=== PATIENT | male | born 1940 | race Caucasian/White ===

== ENCOUNTER 2022-09-11 07:39 | Day surgery (SDC) | payer MEDICARE, OTHER ==
[2022-09-11 08:41] LABS: CALCIUM 8.8 mg/dL (8.5-10.1)
[2022-09-11 08:42] LABS: BLOOD UREA NITROGEN 10.5 mg/dL (7-18)
[2022-09-11 08:44] LABS: BILIRUBIN,DIRECT 0.3 mg/dL (0.0-0.2); CREATININE 0.9 mg/dL (0.55-1.3)
[2022-09-11 08:46] LABS: BILIRUBIN,TOTAL 0.8 mg/dL (0.2-1); TOT PROT 6.6 g/dl (6.4-8.2)
[2022-09-11 08:48] LABS: N-TERMINAL BNP 581.1 pg/ml (5-450)
[2022-09-11 08:51] LABS: BASO % 0.3 % (0-2.0); EOS % 0.5 % (0-4.5); HEMATOCRIT 44.4 % (35.4-49); HEMOGLOBIN 15.8 GM/dL (11.7-16.9); LYMPH % 9.9 % (8-40); MCH 31.4 pg (25.7-33.7); MCHC 35.7 g/dl (32.0-35.9); MEAN CELL VOLUME 88.1 fl (80-96); MEAN PLT VOLUME 7.3 fl (7.5-11.1); MONO % 9.5 % (3.8-10.2); NEUT % 79.8 % (42.8-82.8); PLATELET COUNT 239 10^3/uL (134-434); RBC 5.04 M/mm3 (4.00-5.60); RDW 14.4 % (11.9-15.9); WHITE BLOOD COUNT 9.5 K/mm3 (4.0-10.0)
[2022-09-11 09:16] LABS: EPI CELLS 8 /uL (0-25.1); HYALINE CASTS 1 /uL (0-3.1); PH,URINE 6.5 (5.0-8.0); URINE APPEARANCE CLEAR; URINE BACTERIA 1 /uL (0-1359); URINE BILIRUBIN NEGATIVE (NEGATIVE); URINE COLOR YELLOW; URINE GLUCOSE (UA) TRACE (NEGATIVE); URINE KETONE NEGATIVE (NEGATIVE); URINE LEUK ESTERASE NEGATIVE (NEGATIVE); URINE NITRITE NEGATIVE (NEGATIVE); URINE PROTEIN 2+ (NEGATIVE); URINE RBC 97 /uL (0-23.9); URINE WBC 4 /uL (0-25.8)
[2022-09-11] MEDS ORDERED: SODIUM CHLORIDE 250 ML IV ONE (09:30)
[2022-09-11] MEDS ORDERED: PALONOSETRON HCL 0.25 MG/5 ML VIAL IVPUSH ONE (10:00)
[2022-09-11] MEDS ORDERED: FOSAPREPITANT DIMEGLUMINE 150 MG in SODIUM CHLORIDE 145 ML IVPB ONE (10:00)
[2022-09-11] MEDS ORDERED: PEMBROLIZUMAB 200 MG in SODIUM CHLORIDE 100 ML IV ONE (10:30)
[2022-09-11] MEDS ORDERED: SODIUM CHLORIDE IVPB ONE ×2 (11:00→12:00)
[2022-09-11] MEDS ORDERED: PEMETREXED DISODIUM IVPB ONE (11:00)
[2022-09-11] MEDS ORDERED: POTASSIUM CHLORIDE TABS 20 MEQ TABLET.ER (FP) PO ONE (12:00)
[2022-09-11] MEDS ORDERED: CARBOPLATIN IVPB ONE (12:00)
[2022-09-11 15:37] VITALS: BP 116/84; PULSE 97; RESP 22; TEMP 97.6
== END 2022-09-11 13:30 | disposition home or self-care (01) ==
LOC: JONCCHEMO 07:39
PROVIDERS: ATTEND Internal Medicine Hematology & Oncology
DX: Z51.11 Encounter for antineoplastic chemotherapy (principal); C34.12 Malignant neoplasm of upper lobe, left bronchus or lung
CPT/HCPCS: 36415; 80048; 80076; 81003; 82150; 82533; 82550; 83690; 83880; 84439; 84443; 84484; 85025; 96367; 96375; 96411; 96413; 96417; J1453; J2469; J9271; J9305

== ENCOUNTER 2022-10-02 08:29 | Day surgery (SDC) | payer MEDICARE, OTHER ==
[2022-10-02 09:20] LABS: EPI CELLS 7 /uL (0-25.1); HYALINE CASTS 0 /uL (0-3.1); PH,URINE 6.5 (5.0-8.0); URINE APPEARANCE CLEAR; URINE BACTERIA 142 /uL (0-1359); URINE BILIRUBIN NEGATIVE (NEGATIVE); URINE COLOR YELLOW; URINE GLUCOSE (UA) NEGATIVE (NEGATIVE); URINE KETONE NEGATIVE (NEGATIVE); URINE LEUK ESTERASE TRACE (NEGATIVE); URINE NITRITE NEGATIVE (NEGATIVE); URINE PROTEIN NEGATIVE (NEGATIVE); URINE RBC 18 /uL (0-23.9); URINE UROBILINOGEN 0.2 mg/dL (0.2-1.0); URINE WBC 5 /uL (0-25.8)
[2022-10-02 09:37] LABS: BLOOD UREA NITROGEN 16.2 mg/dL (7-18)
[2022-10-02 09:38] LABS: ALBUMIN 2.9 g/dl (3.4-5.0)
[2022-10-02 09:40] LABS: BILIRUBIN,DIRECT 0.2 mg/dL (0.0-0.2); CREATININE 0.8 mg/dL (0.55-1.3)
[2022-10-02 09:41] LABS: BILIRUBIN,TOTAL 0.4 mg/dL (0.2-1); HEMATOCRIT 37.1 % (35.4-49); HEMOGLOBIN 13.2 GM/dL (11.7-16.9); MCH 31.9 pg (25.7-33.7); MCHC 35.7 g/dl (32.0-35.9); MEAN CELL VOLUME 89.5 fl (80-96); MEAN PLT VOLUME 6.1 fl (7.5-11.1); PLATELET COUNT 379 10^3/uL (134-434); RBC 4.14 M/mm3 (4.00-5.60); RDW 14.6 % (11.9-15.9); TOT PROT 6.4 g/dl (6.4-8.2); WHITE BLOOD COUNT 2.7 K/mm3 (4.0-10.0)
[2022-10-02 09:49] LABS: N-TERMINAL BNP 271.5 pg/ml (5-450)
[2022-10-02] MEDS ORDERED: PALONOSETRON HCL 0.25 MG/5 ML VIAL IVPUSH ONE (10:00)
[2022-10-02] MEDS ORDERED: FOSAPREPITANT DIMEGLUMINE 150 MG in SODIUM CHLORIDE 145 ML IVPB ONE (10:00)
[2022-10-02] MEDS ORDERED: SODIUM CHLORIDE 250 ML IV ONE (10:00)
[2022-10-02 10:30] LABS: ANISOCYTOSIS 0; HELMET CELLS 0; HOWELL-JOLLY BODIES 0; MACROCYTOSIS 0; OVALOCYTE 0; ROULEAU 0; SICKELED CELLS 0; TARGET CELLS 0; TEAR DROP CELLS 0; TOXIC GRANULATION 0
[2022-10-02] MEDS ORDERED: PEMBROLIZUMAB 200 MG in SODIUM CHLORIDE 100 ML IV ONE (10:30)
[2022-10-02] MEDS ORDERED: PEMETREXED DISODIUM IVPB ONE (11:00)
[2022-10-02] MEDS ORDERED: SODIUM CHLORIDE IVPB ONE ×2 (11:00→11:30)
[2022-10-02] MEDS ORDERED: CARBOPLATIN IVPB ONE (11:30)
[2022-10-02 15:45] VITALS: TEMP 97.9
[2022-10-02 15:48] VITALS: BP 122/81; PULSE 95; RESP 20
== END 2022-10-02 11:30 | disposition home or self-care (01) ==
LOC: JONCCHEMO 08:29 → J7W 08:29 → JONCCHEMO 11:30
PROVIDERS: ATTEND Internal Medicine Hematology & Oncology
PROC: 3E0337Z Introduction of Electrolytic and Water Balance Substance into Peripheral Vein, Percutaneous Approach (ICD-10-PCS; principal; 2022-10-02)
DX: C34.12 Malignant neoplasm of upper lobe, left bronchus or lung (principal); Z76.89 Persons encountering health services in other specified circumstances
CPT/HCPCS: 36415; 80048; 80076; 81003; 82150; 82533; 82550; 83690; 83880; 84439; 84443; 84484; 85025; 96360

== ENCOUNTER 2022-10-09 08:11 | Day surgery (SDC) | payer MEDICARE, OTHER ==
[2022-10-09 08:52] LABS: EOS % 0.5 % (0-4.5); HEMATOCRIT 39.6 % (35.4-49); HEMOGLOBIN 14.1 GM/dL (11.7-16.9); LYMPH % 12.5 % (8-40); MCH 31.8 pg (25.7-33.7); MCHC 35.5 g/dl (32.0-35.9); MEAN CELL VOLUME 89.7 fl (80-96); MONO % 15.6 % (3.8-10.2); NEUT % 70.4 % (42.8-82.8); PLATELET COUNT 255 10^3/uL (134-434); RBC 4.42 M/mm3 (4.00-5.60); RDW 15.5 % (11.9-15.9); WHITE BLOOD COUNT 5.4 K/mm3 (4.0-10.0)
[2022-10-09 09:00] LABS: PH,URINE 6.5 (5.0-8.0); URINE APPEARANCE CLEAR; URINE BILIRUBIN NEGATIVE (NEGATIVE); URINE COLOR YELLOW; URINE GLUCOSE (UA) NEGATIVE (NEGATIVE); URINE KETONE NEGATIVE (NEGATIVE); URINE LEUK ESTERASE NEGATIVE (NEGATIVE); URINE NITRITE NEGATIVE (NEGATIVE); URINE PROTEIN NEGATIVE (NEGATIVE); URINE UROBILINOGEN 0.2 mg/dL (0.2-1.0)
[2022-10-09 09:01] LABS: ALBUMIN 3.1 g/dl (3.4-5.0); BLOOD UREA NITROGEN 9.6 mg/dL (7-18); CALCIUM 9.4 mg/dL (8.5-10.1)
[2022-10-09 09:04] LABS: BILIRUBIN,DIRECT 0.3 mg/dL (0.0-0.2)
[2022-10-09 09:05] LABS: TOT PROT 6.8 g/dl (6.4-8.2)
[2022-10-09 09:06] LABS: BILIRUBIN,TOTAL 0.6 mg/dL (0.2-1)
[2022-10-09 09:07] LABS: N-TERMINAL BNP 328.7 pg/ml (5-450)
[2022-10-09] MEDS ORDERED: SODIUM CHLORIDE 250 ML IV ONE (09:30)
[2022-10-09] MEDS ORDERED: FOSAPREPITANT DIMEGLUMINE 150 MG in SODIUM CHLORIDE 145 ML IVPB ONE (10:00)
[2022-10-09] MEDS ORDERED: PALONOSETRON HCL 0.25 MG/5 ML VIAL IVPUSH ONE (10:00)
[2022-10-09] MEDS ORDERED: PEMBROLIZUMAB 200 MG in SODIUM CHLORIDE 100 ML IV ONE (10:30)
[2022-10-09] MEDS ORDERED: SODIUM CHLORIDE IVPB ONE ×2 (11:00→11:30)
[2022-10-09] MEDS ORDERED: PEMETREXED DISODIUM IVPB ONE (11:00)
[2022-10-09] MEDS ORDERED: CARBOPLATIN IVPB ONE (11:30)
[2022-10-09 16:58] VITALS: RESP 19
[2022-10-09 16:59] VITALS: BP 128/91; PULSE 102; TEMP 97.8
== END 2022-10-09 16:10 | disposition home or self-care (01) ==
LOC: JONCCHEMO 08:11
PROVIDERS: ATTEND Internal Medicine Hematology & Oncology
DX: Z51.11 Encounter for antineoplastic chemotherapy (principal); C34.12 Malignant neoplasm of upper lobe, left bronchus or lung
CPT/HCPCS: 36415; 80048; 80076; 81003; 82150; 82533; 82550; 83690; 83880; 84439; 84443; 84484; 85025; 96367; 96375; 96411; 96413; 96417; J1453; J2469; J9271; J9305

== ENCOUNTER 2022-10-09 10:41 | Emergency (ER) | payer MEDICARE, OTHER ==
[2022-10-09 10:53] VITALS: BMI 26.4
[2022-10-09 11:03] VITALS: TEMP 98.2
[2022-10-09 11:56] LABS: URINE APPEARANCE CLEAR; URINE BILIRUBIN NEGATIVE (NEGATIVE); URINE COLOR YELLOW; URINE GLUCOSE (UA) NEGATIVE (NEGATIVE); URINE KETONE TRACE (NEGATIVE); URINE LEUK ESTERASE NEGATIVE (NEGATIVE); URINE NITRITE NEGATIVE (NEGATIVE); URINE PROTEIN NEGATIVE (NEGATIVE); URINE UROBILINOGEN 0.2 mg/dL (0.2-1.0)
[2022-10-09 13:08] VITALS: BP 141/92; PULSE 101; RESP 20
== END 2022-10-09 13:08 | disposition home or self-care (01) ==
LOC: JER 10:41
PROC: 0T9B70Z Drainage of Bladder with Drainage Device, Via Natural or Artificial Opening (ICD-10-PCS; principal; 2022-10-09)
DX: R33.9 Retention of urine, unspecified (principal); R10.30 Lower abdominal pain, unspecified
CPT/HCPCS: 51702; 81003; 87086; 99283-25

== ENCOUNTER 2022-10-10 14:37 | Day surgery (SDC) | payer MEDICARE, OTHER ==
[~2022-10-10 14:37] MED LIST: PEGFILGRASTIM-BMEZ 6 MG/0.6 ML SYRINGE SQ ONE
[2022-10-10 15:38] VITALS: BP 123/81; PULSE 90; RESP 18; TEMP 97.6
== END 2022-10-10 15:10 | disposition home or self-care (01) ==
LOC: JONCCHEMO 14:37
PROVIDERS: ATTEND Internal Medicine Hematology & Oncology
PROC: 3E013GC Introduction of Other Therapeutic Substance into Subcutaneous Tissue, Percutaneous Approach (ICD-10-PCS; principal; 2022-10-10)
DX: C34.90 Malignant neoplasm of unspecified part of unspecified bronchus or lung (principal); Z76.89 Persons encountering health services in other specified circumstances
CPT/HCPCS: 96372; Q5120

== ENCOUNTER 2022-10-30 10:13 | Inpatient (IN) | payer MEDICARE, OTHER ==
[2022-10-30] MEDS ORDERED: LACTATED RINGERS SOLUTION 1000 ML INFUS.BAG IV ONE (11:14)
[2022-10-30 11:49] LABS: VENOUS BASE EXCESS 10.7 mmol/L (-2-2); VENOUS O2 SATURATION 47.4 % (70-80); VENOUS PCO2 52.8 mmHg (38-52); VENOUS PH 7.456 (7.310-7.410)
[2022-10-30 11:52] LABS: HEMATOCRIT 31.7 % (35.4-49); HEMOGLOBIN 11.3 GM/dL (11.7-16.9); MCH 31.3 pg (25.7-33.7); MCHC 35.7 g/dl (32.0-35.9); MEAN CELL VOLUME 87.8 fl (80-96); MEAN PLT VOLUME 6.5 fl (7.5-11.1); PLATELET COUNT 786 10^3/uL (134-434); RDW 16.5 % (11.9-15.9); WHITE BLOOD COUNT 15.3 K/mm3 (4.0-10.0)
[2022-10-30 12:04] LABS: INR 1.72 (0.83-1.09); PROTHROMBIN TIME (PATIENT) 19.9 SEC (9.7-13.0)
[2022-10-30 12:07] LABS: ACTIVATED PTT 36.2 SECONDS (25.2-36.5)
[2022-10-30] MEDS: ALBUTEROL SO4 2.5/IPRATROPIUM 0.5 INH SOL 3 ML VIAL.NEB. NEB SCH (12:13)
[2022-10-30 12:15] LABS: ANISOCYTOSIS 1+; MACROCYTOSIS 0
[2022-10-30] MEDS ORDERED: AZITHROMYCIN IVPB 500 MG in DEXTROSE 5%-WATER - 250 ML IVPB ONE (12:19)
[2022-10-30] MEDS ORDERED: CEFTRIAXONE 1,000 MG in DEXTROSE 5%-WATER - 50 ML IVPB ONE (12:19)
[2022-10-30 12:20] LABS: CHLORIDE 85 mmol/L (98-107); SODIUM 130 mmol/L (136-145)
[2022-10-30 12:22] LABS: BLOOD UREA NITROGEN 12.4 mg/dL (7-18); CALCIUM 9.1 mg/dL (8.5-10.1); CO2 34 mmol/L (21-32); GLUCOSE,RANDOM 124 mg/dL (74-106)
[2022-10-30 12:23] LABS: ALBUMIN 2.8 g/dl (3.4-5.0)
[2022-10-30 12:25] LABS: SGPT/ALT 29 U/L (13-61)
[2022-10-30 12:26] LABS: CREATININE 1.1 mg/dL (0.55-1.3); SGOT/AST 36 U/L (15-37)
[2022-10-30 12:27] LABS: BILIRUBIN,TOTAL 0.6 mg/dL (0.2-1); TOT PROT 6.3 g/dl (6.4-8.2)
[2022-10-30 12:28] LABS: ALK PHOS 117 U/L (45-117)
[2022-10-30] MEDS ORDERED: AZITHROMYCIN IVPB 500 MG/250 ML BAG IVPB ONE (12:29)
[2022-10-30] MEDS ORDERED: CEFTRIAXONE 1 GM/50 ML BAG ONE (12:29)
[2022-10-30 12:37] LABS: ANION GAP 12 MMOL/L (8-16); POTASSIUM 2.5 mmol/L (3.5-5.1)
[2022-10-30 12:55] LABS: LACTIC ACID 2.2 mmol/L (0.4-2.0)
[2022-10-30] MEDS ORDERED: POTASSIUM CHLORIDE ORAL LIQUID 20 MEQ/15 ML PO ONE (15:21)
[2022-10-30 15:27] LABS: EPI CELLS 19 /uL (0-25.1); HYALINE CASTS 1 /uL (0-3.1); PH,URINE 5.5 (5.0-8.0); URINE APPEARANCE TURBID; URINE BACTERIA 1256 /uL (0-1359); URINE BILIRUBIN NEGATIVE (NEGATIVE); URINE COLOR YELLOW; URINE GLUCOSE (UA) NEGATIVE (NEGATIVE); URINE KETONE NEGATIVE (NEGATIVE); URINE LEUK ESTERASE 3+ (NEGATIVE); URINE NITRITE NEGATIVE (NEGATIVE); URINE PROTEIN 1+ (NEGATIVE); URINE RBC 275 /uL (0-23.9); URINE UROBILINOGEN 0.2 mg/dL (0.2-1.0); URINE WBC 20837 /uL (0-25.8)
[2022-10-30] MEDS ORDERED: ALBUTEROL SO4 2.5/IPRATROPIUM 0.5 INH SOL 3 ML VIAL.NEB. NEB PRN (15:39)
[2022-10-30] MEDS ORDERED: POTASSIUM CHLORIDE TABS 20 MEQ TABLET.ER (FP) PO ONE (15:45)
[2022-10-30] MEDS ORDERED: KCL 10 MEQ IVPB 10 MEQ/100 ML INFUS.BAG IVPB ONE (15:46)
[2022-10-30] MEDS ORDERED: ACETAMINOPHEN INJECTION 100 ML IVPB ONE (15:49)
[2022-10-30] MEDS ORDERED: LACTATED RINGERS SOLUTION 1,000 ML/1,000 ML INFUS.BAG IV SCH ×2 (16:00)
[2022-10-30] MEDS: KCL 10 MEQ IVPB 10 MEQ/100 ML INFUS.BAG IVPB SCH (16:37)
[2022-10-30] MEDS ORDERED: ALBUTEROL SO4 2.5/IPRATROPIUM 0.5 INH SOL 3 ML VIAL.NEB. NEB ONE (17:16)
[2022-10-30 20:06] LABS: MAGNESIUM 1.5 mg/dL (1.8-2.4)
[2022-10-30] MEDS ORDERED: traZODone HCL 100 MG TABLET (FP) PO SCH (22:00)
[2022-10-30] MEDS ORDERED: traZODone HCL 50 MG TABLET (FP) PO SCH (22:03)
[2022-10-30] MEDS: DOXYCYCLINE INJECTION 100 MG in DEXTROSE 5%-WATER 100 ML IVPB SCH (22:36)
[2022-10-30] MEDS: APIXABAN 2.5 MG TABLET PO SCH (22:37)
[2022-10-30] MEDS: traZODone HCL 50 MG TABLET (FP) PO SCH (22:37)
[2022-10-30] MEDS: BUDESONIDE/FORMETEROL FUMARATE 160/4.5 mcg INHALER IH SCH (22:38)
[2022-10-31] MEDS ORDERED: MELATONIN 5 MG TABLETS PO ONE (00:53)
[2022-10-31 01:46] VITALS: BMI 25.7
[2022-10-31 08:25] LABS: BLOOD UREA NITROGEN 7.9 mg/dL (7-18)
[2022-10-31 08:26] LABS: CREATININE 0.8 mg/dL (0.55-1.3)
[2022-10-31 08:27] LABS: HEMOGLOBIN 10.5 GM/dL (11.7-16.9); MCH 31.5 pg (25.7-33.7); MEAN CELL VOLUME 87.5 fl (80-96); MEAN PLT VOLUME 6.5 fl (7.5-11.1); PLATELET COUNT 669 10^3/uL (134-434); RBC 3.32 M/mm3 (4.00-5.60); RDW 16.7 % (11.9-15.9); WHITE BLOOD COUNT 14.3 K/mm3 (4.0-10.0)
[2022-10-31] MEDS ORDERED: TAMSULOSIN HCL 0.4 MG CAP PO SCH (08:30)
[2022-10-31 09:23] LABS: ANISOCYTOSIS 1+; MACROCYTOSIS 0
[2022-10-31] MEDS ORDERED: amLODIPine BESYLATE 10 MG TABLET (FP) PO SCH (10:00)
[2022-10-31] MEDS ORDERED: CEFTRIAXONE 1 GM in DEXTROSE 5%-WATER - 50 ML IVPB SCH (10:00)
[2022-10-31] MEDS: DOXYCYCLINE INJECTION 100 MG in DEXTROSE 5%-WATER 100 ML IVPB SCH ×2 (10:01→21:48)
[2022-10-31] MEDS: BUDESONIDE/FORMETEROL FUMARATE 160/4.5 mcg INHALER IH SCH ×2 (10:01→21:49)
[2022-10-31] MEDS: TIOTROPIUM BROMIDE 2.5 MCG (SPIRIVA) RESPIMAT INHALER IH SCH (10:03)
[2022-10-31] MEDS: APIXABAN 2.5 MG TABLET PO SCH ×2 (10:06→21:48)
[2022-10-31] MEDS ORDERED: POTASSIUM CHLORIDE ORAL LIQUID 20 MEQ/15 ML PO ONE (11:34)
[2022-10-31] MEDS: ALBUTEROL SO4 2.5/IPRATROPIUM 0.5 INH SOL 3 ML VIAL.NEB. NEB SCH ×3 (11:45→20:00)
[2022-10-31] MEDS ORDERED: ALBUTEROL SO4 2.5/IPRATROPIUM 0.5 INH SOL 3 ML VIAL.NEB. NEB SCH (12:00)
[2022-10-31] MEDS: KCL 10 MEQ IVPB 10 MEQ/100 ML INFUS.BAG IVPB SCH (15:55)
[2022-10-31] MEDS: PIPERACILLIN/TAZOB 3.375 GM 3.375 GM in DEXTROSE 5%-WATER - 50 ML IVPB SCH (18:04)
[2022-10-31] MEDS ORDERED: SODIUM CHLORIDE 1,000 ML IV SCH (20:15)
[2022-10-31] MEDS: traZODone HCL 50 MG TABLET (FP) PO SCH (21:48)
[2022-10-31] MEDS: busPIRone HCL 10 MG TABLET (FP) PO SCH (21:48)
[2022-11-01] MEDS: PIPERACILLIN/TAZOB 3.375 GM 3.375 GM in DEXTROSE 5%-WATER - 50 ML IVPB SCH ×3 (02:21→17:00)
[2022-11-01] MEDS: ALBUTEROL SO4 2.5/IPRATROPIUM 0.5 INH SOL 3 ML VIAL.NEB. NEB SCH ×4 (07:36→20:19)
[2022-11-01] MEDS: TAMSULOSIN HCL 0.4 MG CAP PO SCH (08:57)
[2022-11-01] MEDS: DOXYCYCLINE INJECTION 100 MG in DEXTROSE 5%-WATER 100 ML IVPB SCH ×2 (10:56→23:40)
[2022-11-01] MEDS: APIXABAN 2.5 MG TABLET PO SCH ×2 (10:58→22:09)
[2022-11-01] MEDS: busPIRone HCL 10 MG TABLET (FP) PO SCH ×2 (10:59→22:09)
[2022-11-01] MEDS: BUDESONIDE/FORMETEROL FUMARATE 160/4.5 mcg INHALER IH SCH ×2 (11:00→22:08)
[2022-11-01] MEDS: TIOTROPIUM BROMIDE 2.5 MCG (SPIRIVA) RESPIMAT INHALER IH SCH (11:01)
[2022-11-01] MEDS ORDERED: DOCUSATE SODIUM 100 MG CAPSULE (FP) PO ONE (19:51)
[2022-11-01] MEDS: POLYETHYLENE GLYCOL (HEALTHYLAX) 3350 17 GM PACKET PO PRN (22:08)
[2022-11-01] MEDS: traZODone HCL 50 MG TABLET (FP) PO SCH (22:09)
[2022-11-02] MEDS: PIPERACILLIN/TAZOB 3.375 GM 3.375 GM in DEXTROSE 5%-WATER - 50 ML IVPB SCH ×3 (02:06→17:47)
[2022-11-02 08:10] LABS: EOS % 0.1 % (0-4.5); HEMATOCRIT 31.2 % (35.4-49); HEMOGLOBIN 11.2 GM/dL (11.7-16.9); MCH 31.8 pg (25.7-33.7); MCHC 35.8 g/dl (32.0-35.9); MEAN CELL VOLUME 88.8 fl (80-96); MEAN PLT VOLUME 6.8 fl (7.5-11.1); MONO % 17.1 % (3.8-10.2); NEUT % 73.8 % (42.8-82.8); PLATELET COUNT 542 10^3/uL (134-434); RBC 3.51 M/mm3 (4.00-5.60); RDW 17.1 % (11.9-15.9); WHITE BLOOD COUNT 9.7 K/mm3 (4.0-10.0)
[2022-11-02] MEDS: ALBUTEROL SO4 2.5/IPRATROPIUM 0.5 INH SOL 3 ML VIAL.NEB. NEB SCH ×4 (08:18→19:54)
[2022-11-02 08:48] LABS: POTASSIUM 3.2 mmol/L (3.5-5.1)
[2022-11-02 08:52] LABS: CALCIUM 8.9 mg/dL (8.5-10.1)
[2022-11-02 08:53] LABS: ALBUMIN 2.7 g/dl (3.4-5.0); BLOOD UREA NITROGEN 9.2 mg/dL (7-18)
[2022-11-02 08:56] LABS: CREATININE 0.9 mg/dL (0.55-1.3)
[2022-11-02 08:57] LABS: BILIRUBIN,TOTAL 0.8 mg/dL (0.2-1); TOT PROT 6.1 g/dl (6.4-8.2)
[2022-11-02] MEDS: TAMSULOSIN HCL 0.4 MG CAP PO SCH (10:06)
[2022-11-02] MEDS: APIXABAN 2.5 MG TABLET PO SCH ×2 (10:06→21:59)
[2022-11-02] MEDS: DOXYCYCLINE HYCLATE 100 MG CAPSULE PO SCH ×2 (10:06→17:50)
[2022-11-02] MEDS: busPIRone HCL 10 MG TABLET (FP) PO SCH ×2 (10:07→21:59)
[2022-11-02] MEDS: TIOTROPIUM BROMIDE 2.5 MCG (SPIRIVA) RESPIMAT INHALER IH SCH (10:08)
[2022-11-02] MEDS: BUDESONIDE/FORMETEROL FUMARATE 160/4.5 mcg INHALER IH SCH ×2 (10:08→21:59)
[2022-11-02] MEDS: POLYETHYLENE GLYCOL (HEALTHYLAX) 3350 17 GM PACKET PO PRN (13:15)
[2022-11-02] MEDS: DOCUSATE SODIUM 100 MG CAPSULE (FP) PO PRN (13:15)
[2022-11-02] MEDS: traZODone HCL 50 MG TABLET (FP) PO SCH (21:59)
[2022-11-03] MEDS: PIPERACILLIN/TAZOB 3.375 GM 3.375 GM in DEXTROSE 5%-WATER - 50 ML IVPB SCH ×3 (01:19→17:44)
[2022-11-03] MEDS: ALBUTEROL SO4 2.5/IPRATROPIUM 0.5 INH SOL 3 ML VIAL.NEB. NEB SCH ×4 (07:25→20:23)
[2022-11-03] MEDS: DOXYCYCLINE HYCLATE 100 MG CAPSULE PO SCH ×2 (09:25→17:43)
[2022-11-03] MEDS: TAMSULOSIN HCL 0.4 MG CAP PO SCH (09:25)
[2022-11-03] MEDS: busPIRone HCL 10 MG TABLET (FP) PO SCH ×2 (09:25→22:12)
[2022-11-03] MEDS: APIXABAN 2.5 MG TABLET PO SCH ×2 (09:26→22:12)
[2022-11-03] MEDS: BUDESONIDE/FORMETEROL FUMARATE 160/4.5 mcg INHALER IH SCH ×2 (09:28→22:12)
[2022-11-03] MEDS: TIOTROPIUM BROMIDE 2.5 MCG (SPIRIVA) RESPIMAT INHALER IH SCH (09:28)
[2022-11-03] MEDS: traZODone HCL 50 MG TABLET (FP) PO SCH (22:12)
[2022-11-03] MEDS: POLYETHYLENE GLYCOL (HEALTHYLAX) 3350 17 GM PACKET PO PRN (22:31)
[2022-11-03] MEDS: DOCUSATE SODIUM 100 MG CAPSULE (FP) PO PRN (22:32)
[2022-11-04] MEDS: PIPERACILLIN/TAZOB 3.375 GM 3.375 GM in DEXTROSE 5%-WATER - 50 ML IVPB SCH ×3 (02:59→17:22)
[2022-11-04] MEDS: ALBUTEROL SO4 2.5/IPRATROPIUM 0.5 INH SOL 3 ML VIAL.NEB. NEB SCH ×4 (08:10→20:17)
[2022-11-04] MEDS: TAMSULOSIN HCL 0.4 MG CAP PO SCH (08:20)
[2022-11-04 08:45] LABS: BASO % 1.7 % (0-2.0); EOS % 0.3 % (0-4.5); HEMATOCRIT 29.9 % (35.4-49); HEMOGLOBIN 10.7 GM/dL (11.7-16.9); LYMPH % 7.5 % (8-40); MCH 32.4 pg (25.7-33.7); MCHC 35.8 g/dl (32.0-35.9); MEAN CELL VOLUME 90.3 fl (80-96); MEAN PLT VOLUME 7.1 fl (7.5-11.1); MONO % 15.8 % (3.8-10.2); NEUT % 74.7 % (42.8-82.8); PLATELET COUNT 387 10^3/uL (134-434); RBC 3.31 M/mm3 (4.00-5.60); RDW 17.2 % (11.9-15.9); WHITE BLOOD COUNT 8.5 K/mm3 (4.0-10.0)
[2022-11-04 09:12] LABS: POTASSIUM 3.5 mmol/L (3.5-5.1)
[2022-11-04 09:23] LABS: CALCIUM 8.7 mg/dL (8.5-10.1)
[2022-11-04 09:24] LABS: ALBUMIN 2.6 g/dl (3.4-5.0); BLOOD UREA NITROGEN 11.3 mg/dL (7-18); MAGNESIUM 1.6 mg/dL (1.8-2.4)
[2022-11-04 09:27] LABS: CREATININE 0.7 mg/dL (0.55-1.3)
[2022-11-04 09:29] LABS: BILIRUBIN,TOTAL 0.7 mg/dL (0.2-1); TOT PROT 5.6 g/dl (6.4-8.2)
[2022-11-04] MEDS: busPIRone HCL 10 MG TABLET (FP) PO SCH ×2 (09:32→22:24)
[2022-11-04] MEDS: DOXYCYCLINE HYCLATE 100 MG CAPSULE PO SCH ×2 (09:33→17:22)
[2022-11-04] MEDS: APIXABAN 2.5 MG TABLET PO SCH ×2 (09:33→22:24)
[2022-11-04] MEDS: BUDESONIDE/FORMETEROL FUMARATE 160/4.5 mcg INHALER IH SCH ×2 (09:35→22:24)
[2022-11-04] MEDS: TIOTROPIUM BROMIDE 2.5 MCG (SPIRIVA) RESPIMAT INHALER IH SCH (09:35)
[2022-11-04] MEDS: FUROSEMIDE 20 MG TABLET (FP) PO SCH ×2 (13:41→14:16)
[2022-11-04] MEDS: POTASSIUM CHLORIDE ORAL LIQUID 20 MEQ/15 ML PO SCH (13:41)
[2022-11-04] MEDS: traZODone HCL 50 MG TABLET (FP) PO SCH (22:24)
[2022-11-04] MEDS: MAGNESIUM OXIDE 400 MG TABLET (FP) PO SCH (22:24)
[2022-11-05] MEDS: PIPERACILLIN/TAZOB 3.375 GM 3.375 GM in DEXTROSE 5%-WATER - 50 ML IVPB SCH ×3 (01:40→18:42)
[2022-11-05] MEDS: ALBUTEROL SO4 2.5/IPRATROPIUM 0.5 INH SOL 3 ML VIAL.NEB. NEB SCH (07:17)
[2022-11-05] MEDS: TAMSULOSIN HCL 0.4 MG CAP PO SCH (08:39)
[2022-11-05 08:57] LABS: BASO % 2.6 % (0-2.0); EOS % 0.6 % (0-4.5); HEMATOCRIT 30.7 % (35.4-49); HEMOGLOBIN 10.6 GM/dL (11.7-16.9); LYMPH % 10.3 % (8-40); MCH 31.4 pg (25.7-33.7); MCHC 34.6 g/dl (32.0-35.9); MEAN CELL VOLUME 90.9 fl (80-96); MEAN PLT VOLUME 7.2 fl (7.5-11.1); MONO % 16.4 % (3.8-10.2); NEUT % 70.1 % (42.8-82.8); PLATELET COUNT 344 10^3/uL (134-434); RBC 3.38 M/mm3 (4.00-5.60); RDW 17.1 % (11.9-15.9); WHITE BLOOD COUNT 6.9 K/mm3 (4.0-10.0)
[2022-11-05 09:20] LABS: POTASSIUM 3.7 mmol/L (3.5-5.1)
[2022-11-05 09:23] LABS: ALBUMIN 2.7 g/dl (3.4-5.0); CALCIUM 8.8 mg/dL (8.5-10.1)
[2022-11-05 09:24] LABS: BLOOD UREA NITROGEN 11.5 mg/dL (7-18)
[2022-11-05 09:27] LABS: CREATININE 0.8 mg/dL (0.55-1.3)
[2022-11-05 09:28] LABS: BILIRUBIN,TOTAL 0.7 mg/dL (0.2-1)
[2022-11-05] MEDS: DOXYCYCLINE HYCLATE 100 MG CAPSULE PO SCH ×2 (09:34→18:42)
[2022-11-05] MEDS: FUROSEMIDE 20 MG TABLET (FP) PO SCH (09:34)
[2022-11-05] MEDS: busPIRone HCL 10 MG TABLET (FP) PO SCH ×2 (09:34→21:38)
[2022-11-05] MEDS: POTASSIUM CHLORIDE ORAL LIQUID 20 MEQ/15 ML PO SCH (09:34)
[2022-11-05] MEDS: APIXABAN 2.5 MG TABLET PO SCH ×2 (09:35→21:38)
[2022-11-05] MEDS: BUDESONIDE/FORMETEROL FUMARATE 160/4.5 mcg INHALER IH SCH ×2 (09:37→21:39)
[2022-11-05] MEDS: TIOTROPIUM BROMIDE 2.5 MCG (SPIRIVA) RESPIMAT INHALER IH SCH (09:37)
[2022-11-05] MEDS: MAGNESIUM OXIDE 400 MG TABLET (FP) PO SCH ×2 (09:41→21:39)
[2022-11-05] MEDS: ALBUTEROL SO4 0.083% IH SOL 2.5 MG/3 ML VIAL.NEB. NEB PRN ×2 (15:50→20:23)
[2022-11-05] MEDS: traZODone HCL 50 MG TABLET (FP) PO SCH (21:38)
[2022-11-06] MEDS: PIPERACILLIN/TAZOB 3.375 GM 3.375 GM in DEXTROSE 5%-WATER - 50 ML IVPB SCH ×3 (02:12→17:15)
[2022-11-06] MEDS: ALBUTEROL SO4 0.083% IH SOL 2.5 MG/3 ML VIAL.NEB. NEB PRN ×3 (08:05→15:41)
[2022-11-06] MEDS: TAMSULOSIN HCL 0.4 MG CAP PO SCH (08:52)
[2022-11-06] MEDS: APIXABAN 2.5 MG TABLET PO SCH ×2 (09:17→21:27)
[2022-11-06] MEDS: FUROSEMIDE 20 MG TABLET (FP) PO SCH (09:17)
[2022-11-06] MEDS: busPIRone HCL 10 MG TABLET (FP) PO SCH ×2 (09:17→21:27)
[2022-11-06] MEDS: DOXYCYCLINE HYCLATE 100 MG CAPSULE PO SCH ×2 (09:17→17:15)
[2022-11-06] MEDS: MAGNESIUM OXIDE 400 MG TABLET (FP) PO SCH ×2 (09:17→21:27)
[2022-11-06] MEDS: POTASSIUM CHLORIDE ORAL LIQUID 20 MEQ/15 ML PO SCH (09:17)
[2022-11-06] MEDS: TIOTROPIUM BROMIDE 2.5 MCG (SPIRIVA) RESPIMAT INHALER IH SCH (09:18)
[2022-11-06] MEDS: BUDESONIDE/FORMETEROL FUMARATE 160/4.5 mcg INHALER IH SCH ×2 (09:18→21:25)
[2022-11-06 09:42] LABS: BASO % 2.4 % (0-2.0); EOS % 0.4 % (0-4.5); HEMATOCRIT 30.3 % (35.4-49); HEMOGLOBIN 10.4 GM/dL (11.7-16.9); LYMPH % 9.4 % (8-40); MCH 31.6 pg (25.7-33.7); MCHC 34.4 g/dl (32.0-35.9); MEAN PLT VOLUME 6.9 fl (7.5-11.1); MONO % 15.4 % (3.8-10.2); NEUT % 72.4 % (42.8-82.8); PLATELET COUNT 319 10^3/uL (134-434); RBC 3.29 M/mm3 (4.00-5.60); RDW 17.4 % (11.9-15.9); WHITE BLOOD COUNT 7.3 K/mm3 (4.0-10.0)
[2022-11-06 10:00] LABS: ALBUMIN 2.6 g/dl (3.4-5.0); BLOOD UREA NITROGEN 13.2 mg/dL (7-18); CALCIUM 8.8 mg/dL (8.5-10.1)
[2022-11-06 10:02] LABS: CREATININE 0.7 mg/dL (0.55-1.3)
[2022-11-06 10:04] LABS: BILIRUBIN,TOTAL 0.8 mg/dL (0.2-1); TOT PROT 5.8 g/dl (6.4-8.2)
[2022-11-06] MEDS: methylPREDNISolone NA SUCC 40 MG/1 ML VIAL IVPUSH SCH (13:46)
[2022-11-06] MEDS: traZODone HCL 50 MG TABLET (FP) PO SCH (21:26)
[2022-11-07] MEDS: PIPERACILLIN/TAZOB 3.375 GM 3.375 GM in DEXTROSE 5%-WATER - 50 ML IVPB SCH ×2 (01:01→09:45)
[2022-11-07] MEDS: ALBUTEROL SO4 0.083% IH SOL 2.5 MG/3 ML VIAL.NEB. NEB PRN ×4 (08:24→20:21)
[2022-11-07] MEDS: TAMSULOSIN HCL 0.4 MG CAP PO SCH (08:25)
[2022-11-07] MEDS: busPIRone HCL 10 MG TABLET (FP) PO SCH ×2 (09:39→22:02)
[2022-11-07] MEDS: APIXABAN 2.5 MG TABLET PO SCH ×2 (09:39→22:02)
[2022-11-07] MEDS: FUROSEMIDE 20 MG TABLET (FP) PO SCH (09:40)
[2022-11-07] MEDS: MAGNESIUM OXIDE 400 MG TABLET (FP) PO SCH ×2 (09:40→22:03)
[2022-11-07] MEDS: POTASSIUM CHLORIDE ORAL LIQUID 20 MEQ/15 ML PO SCH (09:40)
[2022-11-07] MEDS: DOXYCYCLINE HYCLATE 100 MG CAPSULE PO SCH ×2 (09:43→17:32)
[2022-11-07] MEDS: methylPREDNISolone NA SUCC 40 MG/1 ML VIAL IVPUSH SCH (09:47)
[2022-11-07] MEDS: BUDESONIDE/FORMETEROL FUMARATE 160/4.5 mcg INHALER IH SCH ×2 (09:47→22:03)
[2022-11-07] MEDS: TIOTROPIUM BROMIDE 2.5 MCG (SPIRIVA) RESPIMAT INHALER IH SCH (09:47)
[2022-11-07] MEDS: traZODone HCL 50 MG TABLET (FP) PO SCH (22:02)
[2022-11-08] MEDS: ALBUTEROL SO4 0.083% IH SOL 2.5 MG/3 ML VIAL.NEB. NEB PRN ×2 (07:24→11:33)
[2022-11-08 07:29] LABS: BASO % 0.1 % (0-2.0); HEMATOCRIT 31.9 % (35.4-49); MCH 31.7 pg (25.7-33.7); MCHC 34.4 g/dl (32.0-35.9); MEAN PLT VOLUME 7.3 fl (7.5-11.1); MONO % 13.1 % (3.8-10.2); NEUT % 80.8 % (42.8-82.8); PLATELET COUNT 296 10^3/uL (134-434); RBC 3.46 M/mm3 (4.00-5.60); RDW 17.4 % (11.9-15.9); WHITE BLOOD COUNT 9.9 K/mm3 (4.0-10.0)
[2022-11-08 07:56] LABS: POTASSIUM 4.4 mmol/L (3.5-5.1)
[2022-11-08 08:01] LABS: MAGNESIUM 1.8 mg/dL (1.8-2.4)
[2022-11-08 08:05] LABS: PHOSPHOROUS 2.9 mg/dL (2.5-4.9)
[2022-11-08 08:10] LABS: ALBUMIN 2.7 g/dl (3.4-5.0); BLOOD UREA NITROGEN 16.3 mg/dL (7-18); CALCIUM 9.2 mg/dL (8.5-10.1)
[2022-11-08 08:14] LABS: CREATININE 0.7 mg/dL (0.55-1.3)
[2022-11-08 08:15] LABS: BILIRUBIN,TOTAL 0.5 mg/dL (0.2-1)
[2022-11-08] MEDS: TAMSULOSIN HCL 0.4 MG CAP PO SCH (08:33)
[2022-11-08] MEDS: PIPERACILLIN/TAZOB 3.375 GM 3.375 GM in DEXTROSE 5%-WATER - 50 ML IVPB SCH ×2 (10:18→17:49)
[2022-11-08] MEDS: busPIRone HCL 10 MG TABLET (FP) PO SCH ×2 (10:21→23:00)
[2022-11-08] MEDS: DOXYCYCLINE HYCLATE 100 MG CAPSULE PO SCH ×2 (10:21→17:49)
[2022-11-08] MEDS: POTASSIUM CHLORIDE ORAL LIQUID 20 MEQ/15 ML PO SCH (10:21)
[2022-11-08] MEDS: FUROSEMIDE 20 MG TABLET (FP) PO SCH (10:21)
[2022-11-08] MEDS: MAGNESIUM OXIDE 400 MG TABLET (FP) PO SCH ×2 (10:22→23:00)
[2022-11-08] MEDS: APIXABAN 2.5 MG TABLET PO SCH ×2 (10:22→23:00)
[2022-11-08] MEDS: TIOTROPIUM BROMIDE 2.5 MCG (SPIRIVA) RESPIMAT INHALER IH SCH (10:23)
[2022-11-08] MEDS: BUDESONIDE/FORMETEROL FUMARATE 160/4.5 mcg INHALER IH SCH ×2 (10:24→23:01)
[2022-11-08] MEDS: methylPREDNISolone NA SUCC 40 MG/1 ML VIAL IVPUSH SCH (11:14)
[2022-11-08] MEDS: ALBUTEROL SO4 0.083% IH SOL 2.5 MG/3 ML VIAL.NEB. NEB SCH ×2 (15:54→20:13)
[2022-11-08] MEDS: traZODone HCL 50 MG TABLET (FP) PO SCH (23:00)
[2022-11-09] MEDS: PIPERACILLIN/TAZOB 3.375 GM 3.375 GM in DEXTROSE 5%-WATER - 50 ML IVPB SCH ×3 (02:46→17:29)
[2022-11-09] MEDS: ALBUTEROL SO4 0.083% IH SOL 2.5 MG/3 ML VIAL.NEB. NEB SCH ×4 (07:40→20:02)
[2022-11-09] MEDS: POTASSIUM CHLORIDE ORAL LIQUID 20 MEQ/15 ML PO SCH (09:41)
[2022-11-09] MEDS: BUDESONIDE/FORMETEROL FUMARATE 160/4.5 mcg INHALER IH SCH ×2 (09:42→23:06)
[2022-11-09] MEDS: TIOTROPIUM BROMIDE 2.5 MCG (SPIRIVA) RESPIMAT INHALER IH SCH (09:42)
[2022-11-09] MEDS: TAMSULOSIN HCL 0.4 MG CAP PO SCH (09:42)
[2022-11-09] MEDS: MAGNESIUM OXIDE 400 MG TABLET (FP) PO SCH ×2 (09:43→23:04)
[2022-11-09] MEDS: FUROSEMIDE 20 MG TABLET (FP) PO SCH (09:43)
[2022-11-09] MEDS: methylPREDNISolone NA SUCC 40 MG/1 ML VIAL IVPUSH SCH (09:44)
[2022-11-09] MEDS: DOXYCYCLINE HYCLATE 100 MG CAPSULE PO SCH ×2 (09:44→17:28)
[2022-11-09] MEDS: busPIRone HCL 10 MG TABLET (FP) PO SCH ×2 (09:44→23:03)
[2022-11-09] MEDS: APIXABAN 2.5 MG TABLET PO SCH ×2 (09:44→23:05)
[2022-11-09] MEDS: traZODone HCL 50 MG TABLET (FP) PO SCH (23:03)
[2022-11-10] MEDS: PIPERACILLIN/TAZOB 3.375 GM 3.375 GM in DEXTROSE 5%-WATER - 50 ML IVPB SCH ×3 (02:38→17:42)
[2022-11-10] MEDS: ALBUTEROL SO4 0.083% IH SOL 2.5 MG/3 ML VIAL.NEB. NEB SCH ×4 (07:48→19:54)
[2022-11-10] MEDS: TAMSULOSIN HCL 0.4 MG CAP PO SCH (08:24)
[2022-11-10] MEDS: BUDESONIDE/FORMETEROL FUMARATE 160/4.5 mcg INHALER IH SCH ×2 (10:18→22:06)
[2022-11-10] MEDS: TIOTROPIUM BROMIDE 2.5 MCG (SPIRIVA) RESPIMAT INHALER IH SCH (10:18)
[2022-11-10] MEDS: FUROSEMIDE 20 MG TABLET (FP) PO SCH (10:19)
[2022-11-10] MEDS: MAGNESIUM OXIDE 400 MG TABLET (FP) PO SCH ×2 (10:19→22:05)
[2022-11-10] MEDS: POTASSIUM CHLORIDE ORAL LIQUID 20 MEQ/15 ML PO SCH (10:19)
[2022-11-10] MEDS: methylPREDNISolone NA SUCC 40 MG/1 ML VIAL IVPUSH SCH (10:19)
[2022-11-10] MEDS: busPIRone HCL 10 MG TABLET (FP) PO SCH ×2 (10:20→22:06)
[2022-11-10] MEDS: APIXABAN 2.5 MG TABLET PO SCH ×2 (10:20→22:06)
[2022-11-10] MEDS: DOXYCYCLINE HYCLATE 100 MG CAPSULE PO SCH ×2 (10:20→17:42)
[2022-11-10] MEDS: traZODone HCL 50 MG TABLET (FP) PO SCH (22:05)
[2022-11-11] MEDS: PIPERACILLIN/TAZOB 3.375 GM 3.375 GM in DEXTROSE 5%-WATER - 50 ML IVPB SCH ×3 (02:37→17:54)
[2022-11-11] MEDS: ALBUTEROL SO4 0.083% IH SOL 2.5 MG/3 ML VIAL.NEB. NEB SCH ×4 (08:18→20:19)
[2022-11-11 08:59] LABS: BASO % 0.2 % (0-2.0); EOS % 0.2 % (0-4.5); HEMATOCRIT 34.2 % (35.4-49); HEMOGLOBIN 11.6 GM/dL (11.7-16.9); LYMPH % 6.3 % (8-40); MCH 31.5 pg (25.7-33.7); MEAN CELL VOLUME 92.7 fl (80-96); MEAN PLT VOLUME 7.1 fl (7.5-11.1); MONO % 12.6 % (3.8-10.2); NEUT % 80.7 % (42.8-82.8); PLATELET COUNT 272 10^3/uL (134-434); RBC 3.69 M/mm3 (4.00-5.60); RDW 18.1 % (11.9-15.9); WHITE BLOOD COUNT 12.7 K/mm3 (4.0-10.0)
[2022-11-11] MEDS: TAMSULOSIN HCL 0.4 MG CAP PO SCH (09:11)
[2022-11-11] MEDS: POTASSIUM CHLORIDE ORAL LIQUID 20 MEQ/15 ML PO SCH (09:11)
[2022-11-11] MEDS: busPIRone HCL 10 MG TABLET (FP) PO SCH ×2 (09:12→22:29)
[2022-11-11] MEDS: MAGNESIUM OXIDE 400 MG TABLET (FP) PO SCH ×2 (09:12→22:29)
[2022-11-11] MEDS: DOXYCYCLINE HYCLATE 100 MG CAPSULE PO SCH ×2 (09:12→17:54)
[2022-11-11] MEDS: FUROSEMIDE 20 MG TABLET (FP) PO SCH (09:12)
[2022-11-11] MEDS: APIXABAN 2.5 MG TABLET PO SCH ×2 (09:12→22:29)
[2022-11-11] MEDS: methylPREDNISolone NA SUCC 40 MG/1 ML VIAL IVPUSH SCH (09:12)
[2022-11-11] MEDS: BUDESONIDE/FORMETEROL FUMARATE 160/4.5 mcg INHALER IH SCH ×2 (09:13→22:29)
[2022-11-11] MEDS: TIOTROPIUM BROMIDE 2.5 MCG (SPIRIVA) RESPIMAT INHALER IH SCH (09:14)
[2022-11-11 09:29] LABS: ALBUMIN 2.8 g/dl (3.4-5.0); CALCIUM 9.1 mg/dL (8.5-10.1)
[2022-11-11 09:30] LABS: BLOOD UREA NITROGEN 22.3 mg/dL (7-18)
[2022-11-11 09:32] LABS: CREATININE 0.9 mg/dL (0.55-1.3)
[2022-11-11 09:34] LABS: BILIRUBIN,TOTAL 0.6 mg/dL (0.2-1); TOT PROT 6.1 g/dl (6.4-8.2)
[2022-11-11] MEDS: traZODone HCL 50 MG TABLET (FP) PO SCH (22:29)
[2022-11-12] MEDS: PIPERACILLIN/TAZOB 3.375 GM 3.375 GM in DEXTROSE 5%-WATER - 50 ML IVPB SCH ×3 (01:57→17:21)
[2022-11-12] MEDS: ALBUTEROL SO4 0.083% IH SOL 2.5 MG/3 ML VIAL.NEB. NEB SCH ×4 (07:46→20:05)
[2022-11-12] MEDS: POTASSIUM CHLORIDE ORAL LIQUID 20 MEQ/15 ML PO SCH (09:05)
[2022-11-12] MEDS: FUROSEMIDE 20 MG TABLET (FP) PO SCH (09:06)
[2022-11-12] MEDS: APIXABAN 2.5 MG TABLET PO SCH ×2 (09:06→22:25)
[2022-11-12] MEDS: TAMSULOSIN HCL 0.4 MG CAP PO SCH (09:06)
[2022-11-12] MEDS: methylPREDNISolone NA SUCC 40 MG/1 ML VIAL IVPUSH SCH (09:07)
[2022-11-12] MEDS: DOXYCYCLINE HYCLATE 100 MG CAPSULE PO SCH ×2 (09:07→17:21)
[2022-11-12] MEDS: busPIRone HCL 10 MG TABLET (FP) PO SCH ×2 (09:07→22:25)
[2022-11-12] MEDS: MAGNESIUM OXIDE 400 MG TABLET (FP) PO SCH ×2 (09:07→22:26)
[2022-11-12] MEDS: BUDESONIDE/FORMETEROL FUMARATE 160/4.5 mcg INHALER IH SCH ×2 (09:08→22:25)
[2022-11-12] MEDS: TIOTROPIUM BROMIDE 2.5 MCG (SPIRIVA) RESPIMAT INHALER IH SCH (09:08)
[2022-11-12] MEDS: traZODone HCL 50 MG TABLET (FP) PO SCH (22:25)
[2022-11-13] MEDS: PIPERACILLIN/TAZOB 3.375 GM 3.375 GM in DEXTROSE 5%-WATER - 50 ML IVPB SCH ×3 (02:20→17:50)
[2022-11-13] MEDS: ALBUTEROL SO4 0.083% IH SOL 2.5 MG/3 ML VIAL.NEB. NEB SCH ×3 (07:39→15:20)
[2022-11-13] MEDS: DOXYCYCLINE HYCLATE 100 MG CAPSULE PO SCH ×2 (09:07→17:50)
[2022-11-13] MEDS: methylPREDNISolone NA SUCC 40 MG/1 ML VIAL IVPUSH SCH (09:07)
[2022-11-13] MEDS: TAMSULOSIN HCL 0.4 MG CAP PO SCH (09:07)
[2022-11-13] MEDS: POTASSIUM CHLORIDE ORAL LIQUID 20 MEQ/15 ML PO SCH (09:07)
[2022-11-13] MEDS: FUROSEMIDE 20 MG TABLET (FP) PO SCH (09:08)
[2022-11-13] MEDS: MAGNESIUM OXIDE 400 MG TABLET (FP) PO SCH ×2 (09:08→21:38)
[2022-11-13] MEDS: APIXABAN 2.5 MG TABLET PO SCH ×2 (09:08→21:37)
[2022-11-13] MEDS: busPIRone HCL 10 MG TABLET (FP) PO SCH ×2 (09:08→21:37)
[2022-11-13] MEDS: TIOTROPIUM BROMIDE 2.5 MCG (SPIRIVA) RESPIMAT INHALER IH SCH (09:09)
[2022-11-13] MEDS: BUDESONIDE/FORMETEROL FUMARATE 160/4.5 mcg INHALER IH SCH ×2 (09:09→21:40)
[2022-11-13] MEDS: predniSONE 20 MG TABLET (UD) PO SCH (10:40)
[2022-11-13] MEDS: ALBUTEROL SO4 0.083% IH SOL 2.5 MG/3 ML VIAL.NEB. NEB PRN (20:05)
[2022-11-13] MEDS ORDERED: ALBUTEROL SO4 0.083% IH SOL 2.5 MG/3 ML VIAL.NEB. NEB PRN (21:09)
[2022-11-13] MEDS: traZODone HCL 50 MG TABLET (FP) PO SCH (21:37)
[2022-11-14] MEDS: PIPERACILLIN/TAZOB 3.375 GM 3.375 GM in DEXTROSE 5%-WATER - 50 ML IVPB SCH ×2 (01:53→10:37)
[2022-11-14] MEDS: TAMSULOSIN HCL 0.4 MG CAP PO SCH (08:29)
[2022-11-14] MEDS: predniSONE 20 MG TABLET (UD) PO SCH (10:35)
[2022-11-14] MEDS: busPIRone HCL 10 MG TABLET (FP) PO SCH (10:35)
[2022-11-14] MEDS: APIXABAN 2.5 MG TABLET PO SCH (10:36)
[2022-11-14] MEDS: BUDESONIDE/FORMETEROL FUMARATE 160/4.5 mcg INHALER IH SCH (10:36)
[2022-11-14] MEDS: TIOTROPIUM BROMIDE 2.5 MCG (SPIRIVA) RESPIMAT INHALER IH SCH (10:36)
[2022-11-14] MEDS: POTASSIUM CHLORIDE ORAL LIQUID 20 MEQ/15 ML PO SCH (10:36)
[2022-11-14] MEDS: FUROSEMIDE 20 MG TABLET (FP) PO SCH (10:36)
[2022-11-14] MEDS: MAGNESIUM OXIDE 400 MG TABLET (FP) PO SCH (10:36)
[2022-11-14] MEDS: DOXYCYCLINE HYCLATE 100 MG CAPSULE PO SCH (10:37)
[2022-11-14 11:23] VITALS: RESP 20
[2022-11-14] MEDS: ALBUTEROL SO4 0.083% IH SOL 2.5 MG/3 ML VIAL.NEB. NEB SCH ×2 (11:33→15:04)
[2022-11-14 13:56] VITALS: BP 124/70; PULSE 79; TEMP 97.7
== END 2022-11-14 16:35 | disposition home or self-care (01) | DRG 190 ==
LOC: JER 10:13 → JERBED 14:51 → J7W 18:38
PROVIDERS: ADMIT Internal Medicine; ATTEND Internal Medicine
DX: J44.0 Chronic obstructive pulmonary disease with (acute) lower respiratory infection (principal); J18.9 Pneumonia, unspecified organism; C34.90 Malignant neoplasm of unspecified part of unspecified bronchus or lung; E87.20 Acidosis, unspecified; I95.9 Hypotension, unspecified; I48.91 Unspecified atrial fibrillation; R63.0 Anorexia; F17.210 Nicotine dependence, cigarettes, uncomplicated; E87.6 Hypokalemia; D72.829 Elevated white blood cell count, unspecified; R93.89 Abnormal findings on diagnostic imaging of other specified body structures; R94.31 Abnormal electrocardiogram [ECG] [EKG]; R91.8 Other nonspecific abnormal finding of lung field; F41.9 Anxiety disorder, unspecified; I25.10 Atherosclerotic heart disease of native coronary artery without angina pectoris; R94.5 Abnormal results of liver function studies
CPT/HCPCS: 0241U-QW; 36415; 71045-TC-FY; 71250-TC; 80048; 80053; 80061; 80076; 81003; 82150; 82533; 82550; 82553; 82803; 82962; 83605; 83690; 83735; 83880; 84100; 84439; 84443; 84484; 85025; 85379; 85610; 85730; 86850; 86900; 86901; 87040; 87070; 87086; 87186; 87205; 87899; 93005; 93010; 93225; 93226; 93306-TC; 94640; 94761; 99285-25

== ENCOUNTER 2022-12-07 08:10 | Day surgery (SDC) | payer MEDICARE, OTHER ==
[~2022-12-07 08:10] MED LIST changes: +CYANOCOBALAMIN (VITAMIN B-12) 1000 MCG/1 ML VIAL IM ONE; +FOSAPREPITANT DIMEGLUMINE 150 MG in SODIUM CHLORIDE 145 ML IVPB ONE; +PALONOSETRON HCL 0.25 MG/5 ML VIAL IVPUSH ONE; -PEGFILGRASTIM-BMEZ 6 MG/0.6 ML SYRINGE SQ ONE; +PEMBROLIZUMAB 200 MG in SODIUM CHLORIDE 100 ML IV ONE; +PEMETREXED DISODIUM IVPB ONE; +SODIUM CHLORIDE 250 ML IV ONE; +SODIUM CHLORIDE IVPB ONE
[2022-12-07 09:13] LABS: URINE APPEARANCE CLEAR; URINE BILIRUBIN NEGATIVE (NEGATIVE); URINE COLOR YELLOW; URINE GLUCOSE (UA) NEGATIVE (NEGATIVE); URINE KETONE NEGATIVE (NEGATIVE); URINE LEUK ESTERASE NEGATIVE (NEGATIVE); URINE NITRITE NEGATIVE (NEGATIVE); URINE PROTEIN NEGATIVE (NEGATIVE); URINE UROBILINOGEN 0.2 mg/dL (0.2-1.0)
[2022-12-07 09:15] LABS: BASO % 0.8 % (0-2.0); EOS % 1.6 % (0-4.5); HEMOGLOBIN 12.8 GM/dL (11.7-16.9); LYMPH % 10.4 % (8-40); MCH 31.8 pg (25.7-33.7); MCHC 34.6 g/dl (32.0-35.9); MEAN CELL VOLUME 92.1 fl (80-96); MEAN PLT VOLUME 7.1 fl (7.5-11.1); MONO % 11.2 % (3.8-10.2); PLATELET COUNT 245 10^3/uL (134-434); RBC 4.01 M/mm3 (4.00-5.60); WHITE BLOOD COUNT 7.6 K/mm3 (4.0-10.0)
[2022-12-07] MEDS ORDERED: SODIUM CHLORIDE 250 ML IV ONE (09:30)
[2022-12-07 09:35] LABS: CHLORIDE 92 mmol/L (98-107); SODIUM 138 mmol/L (136-145)
[2022-12-07 09:37] LABS: CALCIUM 9.2 mg/dL (8.5-10.1)
[2022-12-07 09:38] LABS: ALBUMIN 2.8 g/dl (3.4-5.0); AMYLASE 60 U/L (25-115); BLOOD UREA NITROGEN 32.4 mg/dL (7-18); CO2 40 mmol/L (21-32); GLUCOSE,RANDOM 207 mg/dL (74-106); LIPASE 112 U/L (73-393)
[2022-12-07 09:40] LABS: BILIRUBIN,DIRECT 0.2 mg/dL (0.0-0.2); CREATININE 1.2 mg/dL (0.55-1.3); SGOT/AST 28 U/L (15-37); SGPT/ALT 27 U/L (13-61)
[2022-12-07 09:42] LABS: BILIRUBIN,TOTAL 0.5 mg/dL (0.2-1); TOT PROT 5.6 g/dl (6.4-8.2)
[2022-12-07 09:43] LABS: ALK PHOS 136 U/L (45-117); N-TERMINAL BNP 800.2 pg/ml (5-450)
[2022-12-07 09:52] LABS: ANION GAP 7 MMOL/L (8-16); POTASSIUM 2.5 mmol/L (3.5-5.1)
[2022-12-07] MEDS ORDERED: PALONOSETRON HCL 0.25 MG/5 ML VIAL IVPUSH ONE (10:00)
[2022-12-07] MEDS ORDERED: FOSAPREPITANT DIMEGLUMINE 150 MG in SODIUM CHLORIDE 145 ML IVPB ONE (10:00)
[2022-12-07] MEDS ORDERED: POTASSIUM CHLORIDE TABS 20 MEQ TABLET.ER (FP) PO ONE (10:30)
[2022-12-07] MEDS ORDERED: PEMBROLIZUMAB 200 MG in SODIUM CHLORIDE 100 ML IV ONE (10:30)
[2022-12-07] MEDS: KCL 10 MEQ IVPB 10 MEQ/100 ML INFUS.BAG IVPB SCH ×3 (10:42→13:29)
[2022-12-07] MEDS ORDERED: SODIUM CHLORIDE IVPB ONE (11:00)
[2022-12-07] MEDS ORDERED: CYANOCOBALAMIN (VITAMIN B-12) 1000 MCG/1 ML VIAL IM ONE ×2 (11:00→13:30)
[2022-12-07] MEDS ORDERED: PEMETREXED DISODIUM IVPB ONE (11:00)
[2022-12-07 15:58] VITALS: BP 98/62; PULSE 83; RESP 22; TEMP 98.3
== END 2022-12-07 14:40 | disposition home or self-care (01) ==
LOC: JONCCHEMO 08:10 → J7W 08:11 → JONCCHEMO 14:40
PROVIDERS: ATTEND Internal Medicine Hematology & Oncology
DX: Z51.11 Encounter for antineoplastic chemotherapy (principal); C34.90 Malignant neoplasm of unspecified part of unspecified bronchus or lung
CPT/HCPCS: 36415; 80048; 80076; 81003; 82150; 82533; 82550; 83690; 83880; 84439; 84443; 84484; 85025; 96366; 96367; 96375; 96411; 96413; J1453; J2469; J9271; J9305

== ENCOUNTER 2022-12-23 12:41 | Emergency (ER) | payer MEDICARE, OTHER ==
[2022-12-23 12:49] VITALS: BMI 24.3
[2022-12-23 13:30] VITALS: TEMP 98.1
[2022-12-23] MEDS ORDERED: BACITRACIN 0.9 GM PACKET ONE (13:39)
[2022-12-23] MEDS ORDERED: BACITRACIN ZINC 15 GM TUBE TOPICAL OINTMENT TP ONE (13:40)
[2022-12-23] MEDS ORDERED: LACTATED RINGERS SOLUTION 1000 ML INFUS.BAG IV ONE (13:41)
[2022-12-23 13:50] LABS: EOS % 0.1 % (0-4.5); HEMATOCRIT 35.4 % (35.4-49); HEMOGLOBIN 12.4 GM/dL (11.7-16.9); MCH 31.7 pg (25.7-33.7); MEAN CELL VOLUME 90.6 fl (80-96); MEAN PLT VOLUME 6.6 fl (7.5-11.1); MONO % 13.9 % (3.8-10.2); PLATELET COUNT 291 10^3/uL (134-434); RBC 3.91 M/mm3 (4.00-5.60); RDW 14.6 % (11.9-15.9); WHITE BLOOD COUNT 13.6 K/mm3 (4.0-10.0)
[2022-12-23 13:57] LABS: VENOUS BASE EXCESS 18.4 mmol/L (-2-2); VENOUS O2 SATURATION 65.3 % (70-80); VENOUS PH 7.504 (7.310-7.410)
[2022-12-23 14:02] LABS: INR 1.91 (0.83-1.09)
[2022-12-23 14:04] LABS: ACTIVATED PTT 31.3 SECONDS (25.2-36.5)
[2022-12-23 14:14] LABS: CHLORIDE 71 mmol/L (98-107); SODIUM 125 mmol/L (136-145)
[2022-12-23 14:16] LABS: ALBUMIN 3.4 g/dl (3.4-5.0); CALCIUM 9.5 mg/dL (8.5-10.1); CO2 44 mmol/L (21-32); GLUCOSE,RANDOM 223 mg/dL (74-106)
[2022-12-23 14:17] LABS: MAGNESIUM 3.2 mg/dL (1.8-2.4)
[2022-12-23 14:20] LABS: CREATININE 2.1 mg/dL (0.55-1.3); SGOT/AST 52 U/L (15-37); SGPT/ALT 38 U/L (13-61)
[2022-12-23 14:21] LABS: BILIRUBIN,TOTAL 1.6 mg/dL (0.2-1); TOT PROT 6.2 g/dl (6.4-8.2)
[2022-12-23 14:23] LABS: ALK PHOS 139 U/L (45-117)
[2022-12-23 14:27] LABS: ANION GAP 9 MMOL/L (8-16); POTASSIUM 2.4 mmol/L (3.5-5.1)
[2022-12-23 14:28] LABS: LACTIC ACID 4.1 mmol/L (0.4-2.0)
[2022-12-23] MEDS ORDERED: POTASSIUM CHLORIDE ORAL LIQUID 20 MEQ/15 ML PO ONE ×2 (14:30→20:20)
[2022-12-23] MEDS: LACTATED RINGERS SOLUTION 1000 ML INFUS.BAG IV ONE ×2 (14:42→14:56)
[2022-12-23] MEDS ORDERED: SODIUM CHLORIDE 0.9% 500 ML INFUS.BAG IV ONE ×2 (14:43→21:07)
[2022-12-23] MEDS: KCL 10 MEQ IVPB 10 MEQ/100 ML INFUS.BAG IVPB SCH ×5 (14:45→22:25)
[2022-12-23] MEDS ORDERED: POTASSIUM CHLORIDE ORAL LIQUID 20 MEQ/15 ML ONE ×2 (14:46→20:25)
[2022-12-23] MEDS ORDERED: KCL 10 MEQ IVPB 10 MEQ/100 ML INFUS.BAG IVPB ONE ×3 (14:47→21:47)
[2022-12-23] MEDS ORDERED: ALBUTEROL SO4 2.5/IPRATROPIUM 0.5 INH SOL 3 ML VIAL.NEB. NEB ONE ×2 (15:23→15:31)
[2022-12-23 15:50] LABS: BILIRUBIN,DIRECT 0.5 mg/dL (0.0-0.2)
[2022-12-23 17:29] LABS: URINE APPEARANCE CLEAR; URINE BILIRUBIN NEGATIVE (NEGATIVE); URINE COLOR YELLOW; URINE GLUCOSE (UA) NEGATIVE (NEGATIVE); URINE KETONE NEGATIVE (NEGATIVE); URINE LEUK ESTERASE NEGATIVE (NEGATIVE); URINE NITRITE NEGATIVE (NEGATIVE); URINE PROTEIN NEGATIVE (NEGATIVE); URINE UROBILINOGEN 0.2 mg/dL (0.2-1.0)
[2022-12-23 18:30] LABS: CHLORIDE 79 mmol/L (98-107); SODIUM 130 mmol/L (136-145)
[2022-12-23 18:31] LABS: CALCIUM 9.1 mg/dL (8.5-10.1)
[2022-12-23 18:32] LABS: BLOOD UREA NITROGEN 36.4 mg/dL (7-18); CO2 42 mmol/L (21-32); GLUCOSE,RANDOM 146 mg/dL (74-106)
[2022-12-23 18:35] LABS: CREATININE 1.7 mg/dL (0.55-1.3)
[2022-12-23] MEDS ORDERED: DOXYCYCLINE INJECTION 100 MG in DEXTROSE 5%-WATER 100 ML IVPB ONE (18:39)
[2022-12-23] MEDS ORDERED: CEFEPIME HCL/D5W 2 GM/50 ML BAG IVPB ONE (18:39)
[2022-12-23 19:25] LABS: ANION GAP 8 MMOL/L (8-16); LACTIC ACID 2.2 mmol/L (0.4-2.0); POTASSIUM 2.6 mmol/L (3.5-5.1)
[2022-12-23] MEDS ORDERED: ACETAMINOPHEN 1000 MG/100 ML BAG IVPB ONE (19:38)
[2022-12-23] MEDS ORDERED: CEFEPIME 2 GM/100 ML BAG IVPB ONE (19:42)
[2022-12-23] MEDS ORDERED: ACETAMINOPHEN INJECTION 100 ML IVPB ONE (19:43)
[2022-12-23] MEDS ORDERED: MAGNESIUM SULF 50% (8.12 MEQ/2 ML-1 GM VIAL) IVPB ONE (20:20)
[2022-12-23] MEDS ORDERED: MAGNESIUM SULFATE IN WATER 2 GM/50 ML IVPB IVPB ONE (20:25)
[2022-12-23] MEDS ORDERED: DOXYCYCLINE HYCLATE 100 MG VIAL ONE (21:47)
[2022-12-23] MEDS ORDERED: SODIUM CHLORIDE 1,000 ML IV STA (21:57)
[2022-12-23] MEDS ORDERED: SODIUM CHLORIDE 500 ML IV STA (21:58)
[2022-12-24] MEDS ORDERED: HUM PROTHROMBIN CPLX(PCC)4FACT 1,000 UNIT/40 ML VIAL IVPB ONE ×3 (01:36→03:00)
[2022-12-24 04:17] VITALS: BP 86/67; PULSE 88; RESP 19
== END 2022-12-24 04:20 | disposition short-term general hospital (02) ==
LOC: JER 12:41
PROC: 3E03329 Introduction of Other Anti-infective into Peripheral Vein, Percutaneous Approach (ICD-10-PCS; principal; 2022-12-23)
PROC: 3E03329 Introduction of Other Anti-infective into Peripheral Vein, Percutaneous Approach (ICD-10-PCS; 2022-12-23)
PROC: 3E033NZ Introduction of Analgesics, Hypnotics, Sedatives into Peripheral Vein, Percutaneous Approach (ICD-10-PCS; 2022-12-23)
PROC: 3E0F7GC Introduction of Other Therapeutic Substance into Respiratory Tract, Via Natural or Artificial Opening (ICD-10-PCS; 2022-12-23)
PROC: 3E033GC Introduction of Other Therapeutic Substance into Peripheral Vein, Percutaneous Approach (ICD-10-PCS; 2022-12-23)
PROC: 3E033GC Introduction of Other Therapeutic Substance into Peripheral Vein, Percutaneous Approach (ICD-10-PCS; 2022-12-24)
DX: S06.5X0A Traumatic subdural hemorrhage without loss of consciousness, initial encounter (principal); S06.6X0A Traumatic subarachnoid hemorrhage without loss of consciousness, initial encounter; R55 Syncope and collapse; E87.20 Acidosis, unspecified; E87.6 Hypokalemia; M54.9 Dorsalgia, unspecified; R07.81 Pleurodynia; W19.XXXA Unspecified fall, initial encounter; Z20.822 Contact with and (suspected) exposure to COVID-19
CPT/HCPCS: 0241U-QW; 36415; 70450-TC; 70486-TC; 71045-TC-FY; 71275-TC; 72125-TC; 74177-TC; 80048; 80053; 81003; 82248; 82550; 82553; 82803; 83605; 83735; 84484; 85025; 85610; 85730; 86850; 86900; 86901; 87040; 87086; 93005; 93010; 99291; J7168; Q9967